=== PATIENT | male | born 1995 | race Hispanic/Latino ===

== ENCOUNTER 2020-06-23 12:56 | Emergency (ER) | payer OTHER, SELFPAY ==
[2020-06-23] MEDS ORDERED: Acetaminophen 500 MG TAB ONE (13:40)
== END 2020-06-23 13:55 | disposition home or self-care (01) ==
LOC: ERS 12:56
DX: S16.1XXA Strain of muscle, fascia and tendon at neck level, initial encounter (principal); V89.2XXA Person injured in unspecified motor-vehicle accident, traffic, initial encounter
CPT/HCPCS: 99283

== ENCOUNTER 2020-12-18 23:59 | Emergency (ER) | payer SELFPAY ==
[2020-12-19] MEDS ORDERED: Ketorolac Tromethamine 30 MG/ML VIAL ONE (01:27)
[2020-12-19] MEDS ORDERED: Lidocaine 1% PF 5 ML VIAL ONE (01:27)
[2020-12-19] MEDS ORDERED: cefTRIAXone\\ROCEPHIN 500 MG VIAL ONE (01:27)
[2020-12-19 01:31] LABS: Bacteria/HPF None Seen HPF (None Seen); Bilirubin Negative (Negative); Blood, Urine Trace (Negative); Clarity Turbid (Clear); Glucose, Urine (Dipstick) Normal (Negative); Ketone, Urine Negative (Negative); Leukocyte 500 Leu/uL (Negative); Nitrite Negative (Negative); Protein, Urine (Dipstick) 10 mg/dL (Neg-Trace); Specific Gravity, Urine 1.023 (1.002-1.036); Squamous Epithelial None Seen HPF (0-3); Urobilinogen Normal mg/dL (Less than 2); WBC/HPF Greater than 50 HPF (0-3); pH, Urine 6.5 (5.0-9.0)
[2020-12-19 20:16] LABS: Chlamydia by PCR Not Detected (NotDetected); GC by PCR DETECTED (NotDetected)
== END 2020-12-19 02:06 | disposition home or self-care (01) ==
LOC: ERS 23:59
DX: R36.9 Urethral discharge, unspecified (principal); Z20.2 Contact with and (suspected) exposure to infections with a predominantly sexual mode of transmission
CPT/HCPCS: 81003; 81015; 87086; 87491; 87591; 96372; 99283; J0696; J1885

== ENCOUNTER 2021-02-25 18:57 | Observation (INO) | payer SELFPAY ==
[2021-02-25] MEDS ORDERED: Acetaminophen 325 MG TAB PO PRN (23:37)
[2021-02-25] MEDS ORDERED: Ondansetron PF 4 MG/2 ML Vial IVP PRN (23:37)
[2021-02-26 00:41] VITALS: BMI 24.0
[2021-02-26] MEDS: Vancomycin 1 GM in Premix Bag 1 BAG IVPB SCH ×2 (02:23→11:03)
[2021-02-26 04:48] LABS: #Eosinphils 0.1 thou/uL (0.0-0.7); #Lymphocytes 0.7 thou/uL (1.20-3.40); #Monocytes 0.6 thou/uL (0.11-0.59); #Neutrophils 5.8 thou/uL (1.40-6.50); %Basophils 0.2 % (0.0-1.0); %Eosinophils 0.9 % (0.0-10.0); %Lymphocytes 9.9 % (21.0-51.0); %Monocytes 8.8 % (0.0-10.0); %Neutrophils 80.2 % (42.0-75.0); Hemoglobin 13.1 g/dL (14.0-18.0); Mean Corpuscular HGB CONC 34.5 g/dL (32.0-36.0); Mean Corpuscular Hemoglobin 30.3 pg (27.0-31.0); Mean Corpuscular Volume 87.9 fL (78.0-98.0); Mean Platelet Volume 9.1 fL (7.4-10.4); Platelet Count 131 thou/uL (130-400); RBC Distribution Width 11.4 % (11.5-14.5); Red Blood Cell (RBC) Count 4.32 mill/uL (4.70-6.10); White Blood Cell (WBC) Count 7.2 thou/uL (4.8-10.8)
[2021-02-26 05:08] LABS: Anion Gap 11 mmol/L (10-20); BUN (Urea Nitrogen) 7 mg/dL (8.9-20.6); Calc. Creatinine Clearance 176 mL/min (70-130); Calcium 8.1 mg/dL (7.8-10.44); Carbon Dioxide 23 mmol/L (22-29); Chloride 107 mmol/L (98-107); Glucose 102 mg/dL (70-105); Potassium 3.3 mmol/L (3.5-5.1); Sodium 138 mmol/L (136-145)
[2021-02-26] MEDS ORDERED: Cefepime 1 GM in Sodium Chloride 0.9% 100 ML IVPB SCH (09:00)
[2021-02-26 12:44] VITALS: BP 115/68; TEMP 97.6
== END 2021-02-26 14:10 | disposition left against medical advice (07) ==
LOC: 2NO 18:57
PROVIDERS: ADMIT Internal Medicine; ATTEND Hospitalist
DX: R41.82 Altered mental status, unspecified (principal); R55 Syncope and collapse; R11.2 Nausea with vomiting, unspecified; D72.829 Elevated white blood cell count, unspecified; Z88.0 Allergy status to penicillin; Z53.29 Procedure and treatment not carried out because of patient's decision for other reasons
CPT/HCPCS: 36415; 71045; 80048; 85025; 93306; 96374; 96375; 96376; G0378; J0692; J2405; J3370; J3490

== ENCOUNTER 2021-05-03 12:28 | Emergency (ER) | payer SELFPAY ==
[2021-05-03] MEDS ORDERED: Ibuprofen 200 MG TAB ONE (14:55)
[2021-05-04 01:02] LABS: SARS-CoV-2 PCR by NAA Not Detected (NotDetected)
== END 2021-05-03 15:12 | disposition home or self-care (01) ==
LOC: ERS 12:28
DX: J02.9 Acute pharyngitis, unspecified (principal); Z20.822 Contact with and (suspected) exposure to COVID-19
CPT/HCPCS: 87081; 87430; 99283; U0003; U0005

== ENCOUNTER 2021-05-04 13:14 | Emergency (ER) | payer SELFPAY | END 2021-05-04 16:25 | disposition home or self-care (01) | LOC: ERS 13:14 | DX: J02.9 Acute pharyngitis, unspecified (principal) | CPT/HCPCS: 99282 ==

== ENCOUNTER 2022-02-23 19:42 | Emergency (ER) | payer BC ==
[2022-02-23 22:05] LABS: #Eosinphils 0.2 thou/uL (0.0-0.7); #Lymphocytes 1.7 thou/uL (1.20-3.40); #Monocytes 0.9 thou/uL (0.11-0.59); #Neutrophils 8.5 thou/uL (1.40-6.50); %Basophils 0.2 % (0.0-1.0); %Eosinophils 1.4 % (0.0-10.0); %Lymphocytes 15.2 % (21.0-51.0); %Monocytes 8.1 % (0.0-10.0); %Neutrophils 75.2 % (42.0-75.0); Hemoglobin 12.5 g/dL (14.0-18.0); Mean Corpuscular Hemoglobin 29.8 pg (27.0-31.0); Mean Corpuscular Volume 90.4 fL (78.0-98.0); Platelet Count 169 thou/uL (130-400); RBC Distribution Width 11.4 % (11.5-14.5); Red Blood Cell (RBC) Count 4.19 mill/uL (4.70-6.10); White Blood Cell (WBC) Count 11.2 thou/uL (4.8-10.8)
[2022-02-23 22:27] LABS: ALT (SGPT) 10 U/L (8-55); AST (SGOT) 15 U/L (5-34); Albumin 4.2 g/dL (3.5-5.0); Alkaline Phosphatase 63 U/L (40-110); Anion Gap 14 mmol/L (10-20); BUN (Urea Nitrogen) 13 mg/dL (8.9-20.6); Calc. Creatinine Clearance 0 mL/min (70-130); Calcium 9.2 mg/dL (7.8-10.44); Carbon Dioxide 27 mmol/L (22-29); Chloride 106 mmol/L (98-107); Estimated GFR 125; Globulin 3.5 g/dL (2.4-3.5); Glucose 78 mg/dL (70-105); Potassium 3.7 mmol/L (3.5-5.1); Protein, Total 7.7 g/dL (6.0-8.3); Sodium 143 mmol/L (136-145)
[2022-02-23 22:33] LABS: Bilirubin Negative (Negative); Blood, Urine Negative (Negative); Clarity Clear (Clear); Glucose, Urine (Dipstick) Normal (Negative); Ketone, Urine Negative (Negative); Leukocyte Negative Leu/uL (Negative); Nitrite Negative (Negative); Protein, Urine (Dipstick) 20 mg/dL (Neg-Trace); Specific Gravity, Urine 1.029 (1.002-1.036); Urobilinogen Normal mg/dL (Less than 2); pH, Urine 5.5 (5.0-9.0)
[2022-02-23] MEDS ORDERED: Lidocaine 1% (PF) 30 ML VIAL ONE (22:39)
[2022-02-23] MEDS ORDERED: Bacitracin 1 PK ONE (23:18)
[2022-02-23] MEDS ORDERED: Doxycycline 100 MG CAP PO SCH (23:30)
== END 2022-02-23 23:55 | disposition home or self-care (01) ==
LOC: ERS 19:42
DX: L02.415 Cutaneous abscess of right lower limb (principal); D72.829 Elevated white blood cell count, unspecified
CPT/HCPCS: 10060; 36415; 80053; 81003; 83605; 85025; J2001

== ENCOUNTER 2022-06-05 20:55 | Emergency (ER) | payer SELFPAY | END 2022-06-05 22:50 | disposition home or self-care (01) | LOC: ERS 20:55 | DX: L02.413 Cutaneous abscess of right upper limb (principal) | CPT/HCPCS: 99282 ==

== ENCOUNTER 2022-12-17 14:46 | Emergency (ER) | payer SELFPAY | END 2022-12-17 15:31 | disposition home or self-care (01) | LOC: ERS 14:46 | DX: Z02.89 Encounter for other administrative examinations (principal); G40.909 Epilepsy, unspecified, not intractable, without status epilepticus; Z79.899 Other long term (current) drug therapy | CPT/HCPCS: 99283 ==

== ENCOUNTER 2023-02-27 15:33 | Emergency (ER) | payer SELFPAY ==
[~2023-02-27 15:33] MED LIST: Iopamidol-370 76% 500 ML MDV (1 ML CHARGE) ONE
[2023-02-27 16:33] LABS: #Basophils 0.1 thou/uL (0.0-0.2); #Eosinphils 0.2 thou/uL (0.0-0.7); #Monocytes 0.7 thou/uL (0.11-0.59); #Neutrophils 4.6 thou/uL (1.40-6.50); %Basophils 0.7 % (0.0-1.0); %Monocytes 9.2 % (0.0-10.0); %Neutrophils 62.7 % (42.0-75.0); Hemoglobin 13.1 g/dL (14.0-18.0); Mean Corpuscular HGB CONC 34.2 g/dL (32.0-36.0); Mean Corpuscular Hemoglobin 30.2 pg (27.0-31.0); Mean Corpuscular Volume 88.2 fl (78.0-98.0); Mean Platelet Volume 11.5 fL (7.4-10.4); Platelet Count 214 10x3/uL (130-400); RBC Distribution Width 12.2 % (11.5-14.5); Red Blood Cell (RBC) Count 4.34 mill/uL (4.70-6.10); White Blood Cell (WBC) Count 7.3 10x3/uL (4.8-10.8)
[2023-02-27 16:56] LABS: Acetaminophen Less than 10 mcg/mL (10.0-30.0); Alcohol Less than 10.0 mg/dL (Less than 10); Salicylate Less than 8.0 mg/dL (15.0-30.0)
[2023-02-27 16:58] LABS: ALT (SGPT) 20 U/L (8-55); AST (SGOT) 22 U/L (5-34); Albumin 4.2 g/dL (3.5-5.0); Alkaline Phosphatase 64 U/L (40-110); Anion Gap 10 mmol/L (10-20); BUN (Urea Nitrogen) 13 mg/dL (8.9-20.6); Bilirubin, Total 0.6 mg/dL (0.2-1.2); CK (CPK) 404 U/L (30-200); Calc. Creatinine Clearance 0 mL/min (70-130); Calcium 9.4 mg/dL (7.8-10.44); Carbon Dioxide 27 mmol/L (22-29); Chloride 104 mmol/L (98-107); Estimated GFR 110; Globulin 3.2 g/dL (2.4-3.5); Glucose 73 mg/dL (70-105); Potassium 3.4 mmol/L (3.5-5.1); Protein, Total 7.4 g/dL (6.0-8.3); Sodium 138 mmol/L (136-145)
== END 2023-02-28 12:23 ==
LOC: ERS 15:33
DX: R45.851 Suicidal ideations (principal); T71.162A Asphyxiation due to hanging, intentional self-harm, initial encounter
CPT/HCPCS: 36415; 70498; 80053; 80307; 82550; 84443; 85025; 93005